=== PATIENT | female | born 1960 | race Caucasian/White ===

== ENCOUNTER → 2016-08-15 | Outpatient (CLI) | payer BC ==
[~2016-08-15] MED LIST: FERREX 150150 MG PO; IRON324 MG PO; VERAPAMIL PO; VERAPAMIL240 MG/TAB PO
== END ==
LOC: COL.RAD 12:39
DX: M25.551 Pain in right hip (principal)
CPT/HCPCS: J3301; Q9967

== ENCOUNTER → 2016-11-19 | Outpatient (CLI) | payer BC | LOC: COL.RAD 07:41 | DX: M25.551 Pain in right hip (principal) | CPT/HCPCS: J3301; Q9967 ==

== ENCOUNTER → 2016-12-18 | Outpatient (CLI) | payer BC | LOC: MC.RAD 08:20 | DX: Z12.31 Encounter for screening mammogram for malignant neoplasm of breast (principal) ==

== ENCOUNTER → 2016-12-26 | Outpatient (CLI) | payer BC | LOC: COL.RAD 13:58 | DX: M25.551 Pain in right hip (principal) | CPT/HCPCS: J3301; Q9967 ==

== ENCOUNTER → 2017-03-22 | Outpatient (CLI) | payer BC | LOC: COL.VAS 03-19 08:45 | DX: I65.23 Occlusion and stenosis of bilateral carotid arteries (principal) ==

== ENCOUNTER → 2017-03-29 | Outpatient (CLI) | payer BC | LOC: COL.LAB 09:28 | DX: Z01.812 Encounter for preprocedural laboratory examination (principal) ==